=== PATIENT | female | born 1965 | race Two or more races ===

== ENCOUNTER → 2018-08-17 12:47 | Emergency (ER) | payer SELFPAY | END | disposition left against medical advice (07) | LOC: C.ER 12:47 | DX: Z02.89 Encounter for other administrative examinations (principal) ==

== ENCOUNTER 2018-09-18 12:01 | Outpatient (CLI) | payer SELFPAY | END 2018-09-18 12:02 | disposition home or self-care (01) | LOC: C.USIC 12:01 ==